=== PATIENT | female | born 1960 | race Caucasian/White ===

== ENCOUNTER 2021-11-30 09:28 | Emergency (ER) | payer OTHER ==
[2021-12-01 12:07] LABS: SARS-CoV-2 PCR by NAA DETECTED (NotDetected)
== END 2021-11-30 10:35 | disposition home or self-care (01) ==
LOC: CSHERS 09:28
DX: U07.1 COVID-19 (principal); I10 Essential (primary) hypertension; E78.5 Hyperlipidemia, unspecified
CPT/HCPCS: 87804; 99283; U0003; U0005

== ENCOUNTER 2022-10-04 18:49 | Emergency (ER) | payer OTHER ==
[~2022-10-04 18:49] MED LIST: Iopamidol 370 76% 100 ML VIAL ONE
[2022-10-04] MEDS ORDERED: Aspirin Chewable 81 MG TAB ONE (19:41)
[2022-10-04] MEDS ORDERED: Ketorolac Tromethamine 30 MG/ML VIAL ONE (19:41)
[2022-10-04] MEDS ORDERED: Lorazepam 2 MG/ML VIAL ONE (20:01)
[2022-10-04 20:14] LABS: #Monocytes 0.6 10x3/uL (0.0-1.1); #Neutrophils 8.8 10x3/uL (1.5-8.4); %Basophils 0.2 % (0.0-2.0); %Eosinophils 0.4 % (0.0-6.0); %Lymphocytes 10.1 % (18.0-47.0); %Monocytes 5.3 % (0.0-10.0); %Neutrophils 83.6 % (40.0-75.0); Hemoglobin 13.3 g/dL (12.0-15.5); Mean Corpuscular HGB CONC 35.7 g/dL (32.0-36.0); Mean Corpuscular Hemoglobin 35.4 pg (27.0-33.0); Mean Corpuscular Volume 99.2 fl (81.6-98.3); Mean Platelet Volume 10.5 fl (7.4-10.4); Platelet Count 166 10x3/uL (150-450); RBC Distribution Width 13.4 % (11.5-14.5); Red Blood Cell (RBC) Count 3.76 10x6/uL (3.90-5.03); White Blood Cell (WBC) Count 10.5 10x3/uL (3.5-10.5)
[2022-10-04 20:25] LABS: ALT (SGPT) 66 U/L (8-55); AST (SGOT) 64 U/L (5-34); Albumin 4.3 g/dL (3.5-5.0); Alkaline Phosphatase 186 U/L (40-110); Anion Gap 20 mmol/L (10-20); BUN (Urea Nitrogen) 8 mg/dL (9.8-20.1); Bilirubin, Total 0.7 mg/dL (0.2-1.2); Calc. Creatinine Clearance 0 mL/min (70-130); Calcium 9.7 mg/dL (7.8-10.44); Carbon Dioxide 23 mmol/L (22-29); Chloride 100 mmol/L (98-107); Estimated GFR 90; Globulin 3.1 g/dL (2.4-3.5); Glucose 138 mg/dL (70-105); Potassium 4.5 mmol/L (3.5-5.1); Protein, Total 7.4 g/dL (6.0-8.3); Sodium 138 mmol/L (136-145)
[2022-10-04] MEDS ORDERED: Dexamethasone 4 MG TAB ONE (20:41)
[2022-10-04 20:57] LABS: SARS-CoV-2 NAA Rapid Test Not Detected (NotDetected)
[2022-10-04] MEDS ORDERED: diphenhydrAMINE 12.5 MG/5 ML UDCUP ONE (23:25)
== END 2022-10-05 00:45 | disposition home or self-care (01) ==
LOC: CSHERS 18:49
DX: R07.81 Pleurodynia (principal); J06.9 Acute upper respiratory infection, unspecified; I10 Essential (primary) hypertension; E78.5 Hyperlipidemia, unspecified; Z20.822 Contact with and (suspected) exposure to COVID-19; Z79.899 Other long term (current) drug therapy
CPT/HCPCS: 36415; 71045; 71275; 80053; 83880; 84484; 85025; 85379; 87040; 87081; 87430; 93005; 94640; 94760; 96361; 96374; 96375; J1885; J2060; J7620; J8540; Q0163; Q9967

== ENCOUNTER 2022-12-31 07:52 | Emergency (ER) | payer OTHER ==
[2022-12-31] MEDS ORDERED: Fentanyl 100 MCG/2 ML VIAL ONE (08:16)
[2022-12-31] MEDS ORDERED: Lidocaine 1% w/Epinephrine 1:200K 30 ML VIAL ONE (08:17)
== END 2022-12-31 09:12 | disposition home or self-care (01) ==
LOC: CSHERS 07:52
DX: N75.1 Abscess of Bartholin's gland (principal); I10 Essential (primary) hypertension; E78.5 Hyperlipidemia, unspecified; F17.200 Nicotine dependence, unspecified, uncomplicated; Z79.899 Other long term (current) drug therapy
CPT/HCPCS: 56420; 87070; 87205; 96374; J3010

== ENCOUNTER 2023-01-02 17:11 | Emergency (ER) | payer OTHER ==
[2023-01-02] MEDS ORDERED: Lidocaine 1% (PF) 30 ML VIAL ONE (17:53)
[2023-01-02] MEDS ORDERED: Lorazepam 2 MG/ML VIAL ONE ×3 (17:53→18:13)
[2023-01-02] MEDS ORDERED: Fentanyl 100 MCG/2 ML VIAL ONE ×2 (17:53→17:57)
== END 2023-01-02 19:36 | disposition home or self-care (01) ==
LOC: CSHERS 17:11
DX: N76.4 Abscess of vulva (principal); I10 Essential (primary) hypertension; E78.5 Hyperlipidemia, unspecified; F17.200 Nicotine dependence, unspecified, uncomplicated
CPT/HCPCS: 56405; 96374; 96375; J2001; J2060; J3010

== ENCOUNTER 2023-02-03 11:19 | Outpatient (CLI) | payer OTHER | END 2023-02-03 11:20 | disposition home or self-care (01) | LOC: CSHRAD 11:19 | PROVIDERS: ATTEND Orthopaedic Surgery | DX: M54.50 Low back pain, unspecified (principal); M46.1 Sacroiliitis, not elsewhere classified; M54.12 Radiculopathy, cervical region; M54.6 Pain in thoracic spine; M47.816 Spondylosis without myelopathy or radiculopathy, lumbar region; Z98.890 Other specified postprocedural states; M47.812 Spondylosis without myelopathy or radiculopathy, cervical region; M47.814 Spondylosis without myelopathy or radiculopathy, thoracic region | CPT/HCPCS: 72040; 72072; 72100; 72190 ==

== ENCOUNTER 2023-07-28 12:37 | Emergency (ER) | payer OTHER | END 2023-07-28 16:45 | disposition home or self-care (01) | LOC: CSHERS 12:37 | DX: T81.31XA Disruption of external operation (surgical) wound, not elsewhere classified, initial encounter (principal); S51.012A Laceration without foreign body of left elbow, initial encounter; S80.211A Abrasion, right knee, initial encounter; I10 Essential (primary) hypertension; E78.5 Hyperlipidemia, unspecified; F17.200 Nicotine dependence, unspecified, uncomplicated; W18.30XA Fall on same level, unspecified, initial encounter; Z79.899 Other long term (current) drug therapy | CPT/HCPCS: 99283 ==